=== PATIENT | male | born 1965 | race Two or more races ===

== ENCOUNTER 2020-05-16 15:13 | Emergency (ER) | payer MEDICAID ==
[~2020-05-16] VITALS: Ht 167.6 cm; Wt 70.3 kg
[2020-05-16 15:30] VITALS: BP 132/91
--- NOTE | 2020-05-16 15:30 | NUR ---
ED Nurse Note: Pt brought in by ambulance from home c/o abd pain after ETOH use. Pt denies n/v. Respirations even and unlabored on room air. Vitals stable as documented. A+Ox4, speaking in complete sentences.
[2020-05-16] MEDS ORDERED: Lidocaine 2% Visc 15ml soln ORAL ONE (16:00)
[2020-05-16] MEDS ORDERED: Mylanta II UD 30ml ORAL ONE (16:00)
[2020-05-16 16:28] LABS: ANION GAP 11 mmol/L (5-15); BLOOD UREA NITROGEN 1 mg/dL (7-18); CALCIUM 8.1 MG/DL (8.5-10.1); CARBON DIOXIDE 25 MMOL/L (21-32); CHLORIDE 106 MMOL/L (98-107); CREATININE 0.7 MG/DL (0.55-1.30); POTASSIUM 3.3 MMOL/L (3.5-5.1); SODIUM 142 MMOL/L (136-145)
[2020-05-16 16:34] LABS: ALANINE AMINOTRANSFERASE 59 U/L (12-78); ALBUMIN 3.9 G/DL (3.4-5.0); ALBUMIN/GLOBULIN RATIO 1.1 (1.0-2.7); ALKALINE PHOSPHATASE 92 U/L (46-116); ASPARTATE AMINO TRANSFERASE 92 U/L (15-37); BILIRUBIN,TOTAL 0.9 MG/DL (0.2-1.0)
[2020-05-16 16:42] LABS: HEMATOCRIT 43.8 % (42.0-52.0); HEMOGLOBIN 14.8 G/DL (14.2-18.0); MEAN CORPUSCULAR VOLUME 89 FL (80-99); PLATELET COUNT 47 K/UL (150-450); RED BLOOD COUNT 4.93 M/UL (4.70-6.10); RED CELL DISTRIBUTION WIDTH 14.6 % (11.6-14.8); WHITE BLOOD COUNT 5.8 K/UL (4.8-10.8)
--- NOTE | 2020-05-16 17:19 | Emergency Room Report ---
History of Present Illness General Chief Complaint: Abdominal Pain Source: Patient Present Illness HPI This patient complains of very localized abdominal pain. The patient states that he has a history of heavy alcohol use. He states he primarily drinks beer and drinks "a lot." He cannot give me the number of beers that he drinks per day. He admits to being an alcoholic for many years. He states that he noted today that there was some pain on his mid abdomen. He also notes bruising there. It is very tender to the touch. He denies recent illness. He denies fever chills. He denies nausea or vomiting. He denies cough or congestion. He denies trauma or other injury. He has no other complaints. Allergies: Coded Allergies: No Known Allergies (Unverified , 05/16/20) COVID-19 Screening Contact w/high risk pt: No Experienced COVID-19 symptoms?: No COVID-19 Testing performed MATERIALS SUPERVISOR: No Patient History Past Medical History: see triage record, other - Psoriasis Social History: Reports: alcohol use - Heavy; Denies: smoking, drug use Reviewed Nursing Documentation: PMH: Agreed; PSxH: Agreed Nursing Documentation-PMH Past Medical History: No History, Except For History Of Psychiatric Problem: Yes - etoh abuse Review of Systems All Other Systems: negative except mentioned in HPI Physical Exam Vital Signs Date Time Temp Pulse Resp B/P (MAP) Pulse Ox O2 Delivery O2 Flow Rate FiO2 05/16/20 15:20 98.1 72 19 139/97 (111) 96 Room Air Sp02 EP Interpretation: reviewed, normal General Appearance: no apparent distress, alert, GCS 15, non-toxic Head: normocephalic, atraumatic Eyes: bilateral eye normal inspection, bilateral eye PERRL ENT: hearing grossly normal, normal pharynx, no angioedema, normal voice Neck: normal inspection, full range of motion, supple/symm/no masses Respiratory: chest non-tender, lungs clear, normal breath sounds, no respiratory distress, no retraction, no accessory muscle use, speaking full sentences Cardiovascular #1: regular rate, rhythm, no edema Gastrointestinal: soft, non-distended, no guarding, no rebound, tenderness - Very localized ttp on the mid epigastrium with associated quarter-sized area of ecchymosis. Rectal: deferred Musculoskeletal: back normal, normal range of motion, gait/station normal, non- tender Neurologic: alert, motor strength/tone normal, oriented x3, sensory intact, responsive, speech normal Psychiatric: judgement/insight normal, memory normal, mood/affect normal, no suicidal/homicidal ideation Medical Decision Making Diagnostic Impression: Primary Impression: Abdominal pain Additional Impressions: ETOH abuse Superficial bruising of abdominal wall Cirrhosis Abnormal CT scan, bladder ER Course This patient is found to have liver cirrhosis. This is expected given the patient's history of heavy alcohol use. The area that the patient is concerned about appears to be a small contusion. This likely occurred when the patient bumped something while he was intoxicated. The area that is tender is small and localized. The patient has a follow-up visit with his primary care physician on the of this month. He will need to see a bending machine set up operator for his clear cirrhosis. He also should see a urologist to further assess his bladder that was incidentally found to be abnormal. The patient was given a copy of his CT scan and all of his lab work to bring to his primary care physician. [facility] and the patient information was faxed to the clinic for him. The patient was instructed to follow-up closely with his primary care physician. No emergency medical condition was identified at this time. The patient is given close return precautions and follow-up instructions. He is also warned on the dangers of heavy alcohol use. Laboratory Tests Test 05/16/20 16:00 05/16/20 17:00 White Blood Count 5.8 K/UL (4.8-10.8) Red Blood Count 4.93 M/UL (4.70-6.10) Hemoglobin 14.8 G/DL (14.2-18.0) Hematocrit 43.8 % (42.0-52.0) Mean Corpuscular Volume 89 FL (80-99) Mean Corpuscular Hemoglobin 30.0 PG (27.0-31.0) Mean Corpuscular Hemoglobin Concent 33.8 G/DL (32.0-36.0) Red Cell Distribution Width 14.6 % (11.6-14.8) Platelet Count 47 K/UL (150-450) L Mean Platelet Volume 8.8 FL (6.5-10.1) Neutrophils (%) (Auto) % (45.0-75.0) Lymphocytes (%) (Auto) % (20.0-45.0) Monocytes (%) (Auto) % (1.0-10.0) Eosinophils (%) (Auto) % (0.0-3.0) Basophils (%) (Auto) % (0.0-2.0) Neutrophils % (Manual) Pending Lymphocytes % (Manual) Pending Platelet Estimate Pending Platelet Morphology Pending Sodium Level 142 MMOL/L (136-145) Potassium Level 3.3 MMOL/L (3.5-5.1) L Chloride Level 106 MMOL/L (98-107) Carbon Dioxide Level 25 MMOL/L (21-32) Anion Gap 11 mmol/L (5-15) Blood Urea Nitrogen 1 mg/dL (7-18) L Creatinine 0.7 MG/DL (0.55-1.30) Estimated Glomerular Filtration Rate > 60 mL/min (>60) Glucose Level 112 MG/DL (74-106) H Calcium Level 8.1 MG/DL (8.5-10.1) L Total Bilirubin 0.9 MG/DL (0.2-1.0) Aspartate Amino Transferase (AST) 92 U/L (15-37) H Alanine Aminotransferase (ALT) 59 U/L (12-78) Alkaline Phosphatase 92 U/L (46-116) Total Protein 7.6 G/DL (6.4-8.2) Albumin 3.9 G/DL (3.4-5.0) Globulin 3.7 g/dL Albumin/Globulin Ratio 1.1 (1.0-2.7) Lipase 283 U/L (73-393) Serum Alcohol 435 mg/dL Urine Color Pale yellow Urine Appearance Clear Urine pH 8 (4.5-8.0) Urine Specific [place] 1.010 (1.005-1.035) Urine Protein Negative (NEGATIVE) Urine Glucose (UA) Negative (NEGATIVE) Urine Ketones Negative (NEGATIVE) Urine Blood Negative (NEGATIVE) Urine Nitrite Negative (NEGATIVE) Urine Bilirubin Negative (NEGATIVE) Urine Urobilinogen Normal MG/DL (0.0-1.0) Urine Leukocyte Esterase Negative (NEGATIVE) CT/MRI/US Diagnostic Results CT/MRI/US Diagnostic Results : Imaging Test Ordered: CT abd/pelvis Impression MPRESSION: 1. Study limited due to lack of IV contrast. 2. Liquid large bowel contents could be incidental or could represent an infectious or inflammatory colitis or enterocolitis in the proper context. 3. Asymmetric urinary bladder wall thickening could represent cystitis or neoplasm, recommend cystoscopy and correlation with laboratory values. 4. Distended gallbladder, correlate to exclude acute cholecystitis. 5. Recommend MRI abdomen without and with IV contrast to further characterize probable cirrhosis with confluent fibrosis and left renal findings which could represent neoplasm. 6. Anterior abdominal wall, right paramedian area of skin thickening and subcutaneous mild edema, axial series 4, image 57 could represent contusion, medication injection site, or cellulitis. Chronic with exam. 7. Elevated left hemidiaphragm of uncertain chronicity, correlate with history. 8. Prostatomegaly 5.5 cm transverse. Last Vital Signs Date Time Temp Pulse Resp B/P (MAP) Pulse Ox O2 Delivery O2 Flow Rate FiO2 05/16/20 15:30 98.3 79 20 132/91 97 Room Air Status: improved Disposition: HOME, SELF-CARE Condition: Improved Erin Foley DO May 16, 2020 17:19
[2020-05-16 17:30] VITALS: BP 138/86
--- NOTE | 2020-05-16 18:01 | NUR ---
ED Nurse Note: pt in radiology.
--- NOTE | 2020-05-16 18:06 | NUR ---
ED Nurse Note: pt back from radiology. No acute distress noted.
[2020-05-16 18:34] LABS: APPEARANCE,URINE CLEAR; BILIRUBIN, URINE NEGATIVE (NEGATIVE); COLOR,URINE PALE YELLOW; GLUCOSE, URINE (UA) NEGATIVE (NEGATIVE); KETONES,URINE NEGATIVE (NEGATIVE); LEUKOCYTE ESTERASE ,URINE NEGATIVE (NEGATIVE); NITRITE,URINE NEGATIVE (NEGATIVE); PH,URINE 8 (4.5-8.0); PROTEIN,URINE NEGATIVE (NEGATIVE); UROBILINOGEN,URINE NORMAL MG/DL (0.0-1.0)
--- NOTE | 2020-05-16 18:45 | Diagnostic Imaging Report ---
EXAM: CT Abdomen and Pelvis Without Intravenous Contrast CLINICAL HISTORY: PAIN TECHNIQUE: Axial computed tomography images of the abdomen and pelvis without intravenous contrast. CTDI is 6.6 mGy and DLP is 390.3 mGy-cm. One or more of the following dose reduction techniques were used: automated exposure control, adjustment of the mA and/or kV according to patient size, use of iterative reconstruction technique. Coronal and sagittal reformatted images were created and reviewed. COMPARISON: No relevant prior studies available. FINDINGS: Limitations: Study limited due to lack of IV contrast. Lung bases: Unremarkable. No mass. No consolidation. ABDOMEN: Liver: Nodular hepatic morphology with steatosis, suggests cirrhosis, incompletely evaluated on this study; areas of probable confluent fibrosis present. Gallbladder and bile ducts: Distended gallbladder, correlate to exclude acute cholecystitis. No ductal dilation. Pancreas: Unremarkable. No ductal dilation. Spleen: Unremarkable. No splenomegaly. Adrenals: Unremarkable. No mass. Kidneys and ureters: Left renal 1.5 cm dense medial nodule, 1.6 cm inferior pole soft tissue attenuation exophytic structure, bilateral additional renal hypodensities which are not well characterized. Stomach and bowel: Liquid large bowel contents could be incidental or could represent an infectious or inflammatory colitis or enterocolitis in the proper context. PELVIS: Appendix: No findings to suggest acute appendicitis. Bladder: Asymmetric urinary bladder wall thickening along anterior aspect could represent cystitis or neoplasm, recommend cystoscopy and correlation with laboratory values. No stones. Reproductive: Prostatomegaly 5.5 cm transverse. ABDOMEN and PELVIS: Intraperitoneal space: Unremarkable. No free air. No significant fluid collection. Bones/joints: Degenerative spine findings. No acute fracture. No dislocation. Soft tissues: Anterior abdominal wall, right paramedian area of skin thickening and subcutaneous mild edema, axial series 4, image 57 could represent contusion, medication injection site, or cellulitis. Chronic with exam. Vasculature: Unremarkable. No abdominal aortic aneurysm. Lymph nodes: Unremarkable. No enlarged lymph nodes. Other findings: Elevated left hemidiaphragm of uncertain chronicity, correlate with history. Otherwise, no concerning findings. Due to elevated left hemidiaphragm. IMPRESSION: 1. Study limited due to lack of IV contrast. 2. Liquid large bowel contents could be incidental or could represent an infectious or inflammatory colitis or enterocolitis in the proper context. 3. Asymmetric urinary bladder wall thickening could represent cystitis or neoplasm, recommend cystoscopy and correlation with laboratory values. 4. Distended gallbladder, correlate to exclude acute cholecystitis. 5. Recommend MRI abdomen without and with IV contrast to further characterize probable cirrhosis with confluent fibrosis and left renal findings which could represent neoplasm. 6. Anterior abdominal wall, right paramedian area of skin thickening and subcutaneous mild edema, axial series 4, image 57 could represent contusion, medication injection site, or cellulitis. Chronic with exam. 7. Elevated left hemidiaphragm of uncertain chronicity, correlate with history. 8. Prostatomegaly 5.5 cm transverse.
--- NOTE | 2020-05-16 19:21 | NUR ---
PATIENT REQUESTED TO FAX INFORMATION TO HIS CLINIC, WILL FAX IT TO [phone]
--- NOTE | 2020-05-16 19:24 | NUR ---
HAND-OFF: Report given to COLETTE Flores. Pt in stable condition; plan of care endorsed.
--- NOTE | 2020-05-16 19:30 | NUR ---
ED Nurse Note: Recieved pt in bed resting quietly, awake, alert and oriented x 4, pt has patent IV site, pt is completely dressed, gowned and placed on cardiac monitoring for V/S, wnl, pt denies abdominal pain, chest pain or any pain, no sob or labored breathing noted, pt has severe psoriasis and red, rash skin ion entire body with flaking and scabs noted, denies vomiting, diarrhea, or any other complaints at this time, will resume care as ordered and contionue to closely monitor, pt states is ready to go home, made aware.
[2020-05-16 19:40] VITALS: BP 133/79
[2020-05-16 21:05] VITALS: BP 141/85
--- NOTE | 2020-05-16 21:15 | NUR ---
ER DISCHARGE NOTE: Patient is cleared to be discharged per ERMD, pt is aox4, on room air, with stable vital signs. pt was given dc instructions, pt was able to verbalize understanding, pt id band and iv site removed without complications. pt is able to ambulate with steady gait. pt took all belongings. nad noted during pt d/c to home. pt has family present to drive him.
[2020-05-16 21:20] VITALS: BP 141/85
== END 2020-05-16 21:20 | disposition home or self-care (01) ==
LOC: EDBD 15:13 → EMR 16:12
DX: R10.9 Unspecified abdominal pain (principal); F10.10 Alcohol abuse, uncomplicated; S30.1XXA Contusion of abdominal wall, initial encounter; K74.60 Unspecified cirrhosis of liver; R93.5 Abnormal findings on diagnostic imaging of other abdominal regions, including retroperitoneum; L40.9 Psoriasis, unspecified; N40.0 Benign prostatic hyperplasia without lower urinary tract symptoms
CPT/HCPCS: 36415; 74176; 80053; 81003; 83690; 85007; 85025; 96361; 96374; G0480; J7030; S0028; Z7502; 99284; J8499